=== PATIENT | female | born 1970 | race Caucasian/White ===

== ENCOUNTER → 2016-05-20 | Outpatient (CLI) | payer OTHER | LOC: BHSO 09:02 | DX: F41.1 Generalized anxiety disorder (principal) ==

== ENCOUNTER → 2016-10-20 | Outpatient (CLI) | payer OTHER | LOC: MC.RAD 07:20 | DX: Z12.31 Encounter for screening mammogram for malignant neoplasm of breast (principal) ==

== ENCOUNTER → 2016-10-31 | Outpatient (CLI) | payer OTHER | LOC: BHSO 09:20 | DX: F33.1 Major depressive disorder, recurrent, moderate (principal) ==

== ENCOUNTER → 2017-04-30 | Outpatient (CLI) | payer OTHER | LOC: BHSO 10:00 | DX: F41.1 Generalized anxiety disorder (principal) | CPT/HCPCS: G0463 ==

== ENCOUNTER 2017-09-18 06:02 | Day surgery (SDC) | payer BC ==
[~2017-09-18] VITALS: Ht 162.6 cm; Wt 169.0 kg
[2017-09-18] MEDS ORDERED: PROZAC 10MG10 MG PO (06:26)
[2017-09-18] MEDS ORDERED: LAMICTAL150 MG PO ×2 (06:26→06:27)
[2017-09-18] MEDS ORDERED: RHINOCORT0.032 MG/1 NS (06:26)
[2017-09-18] MEDS ORDERED: TOPAMAX 100MG100 M1 PO (06:27)
[2017-09-18] MEDS ORDERED: ALLEGRA 180MG180 MG PO (06:27)
[2017-09-18] MEDS ORDERED: NORETHINDRONE/E1 KIT PO (06:27)
[2017-09-18 06:28] VITALS: BP 108/73; PULSE 71; TEMP 97.7
[2017-09-18 07:30] VITALS: BP 100/73; PULSE 66; TEMP 97
[2017-09-18 07:45] VITALS: BP 112/74; PULSE 63
[2017-09-18 08:00] VITALS: BP 118/75; PULSE 79
== END 2017-09-18 08:19 | disposition home or self-care (01) ==
LOC: SDCO 06:02
DX: Z12.11 Encounter for screening for malignant neoplasm of colon (principal); J45.909 Unspecified asthma, uncomplicated; G43.909 Migraine, unspecified, not intractable, without status migrainosus; F32.9 Major depressive disorder, single episode, unspecified; F41.9 Anxiety disorder, unspecified; Z88.1 Allergy status to other antibiotic agents; Z88.2 Allergy status to sulfonamides; Z80.0 Family history of malignant neoplasm of digestive organs
CPT/HCPCS: OP; J2704; J7120

== ENCOUNTER → 2017-11-09 | Outpatient (CLI) | payer BC ==
[~2017-11-09] MED LIST: ALLEGRA 180MG180 MG PO; LAMICTAL150 MG PO; NORETHINDRONE/E1 KIT PO; PROZAC 10MG10 MG PO; RHINOCORT0.032 MG/1 NS; TOPAMAX 100MG100 M1 PO
== END ==
LOC: MC.RAD 06:58
DX: Z12.31 Encounter for screening mammogram for malignant neoplasm of breast (principal)

== ENCOUNTER 2017-12-14 13:16 | Outpatient (RCR) | payer BC | END 2018-03-14 | disposition home or self-care (01) | LOC: MKS.ESL.PT | DX: M65.831 Other synovitis and tenosynovitis, right forearm (principal) ==

== ENCOUNTER 2018-08-28 20:04 | Inpatient (IN) | payer BC ==
[~2018-08-28] VITALS: Ht 162.6 cm; Wt 89.9 kg
[2018-08-28 20:44] LABS: BASO % 0.3 % (0.0-2.0); EOS # 0.1 (0.0-0.7); EOS % 0.9 % (0-4.0); GRAN # 6.4 (1.4-6.5); GRAN % 60.7 % (42.2-75.2); HEMOGLOBIN 13.4 g/dl (12.5-16.0); LYMPH # 3.2 (1.2-3.4); LYMPH % 30.4 % (20.0-51.0); MEAN CELL VOLUME 90 fl (80.0-100.0); MEAN CORPUSCULAR HEMOGLOBIN 30 pg (27.0-31.0); MEAN CORPUSCULAR HGB CONC 34 g/dl (33.0-37.0); MEAN PLATELET VOLUME 9.5 fl (7.4-10.4); MONO # 0.8 (0.1-0.6); MONO % 7.2 % (1.7-9.3); PLATELET COUNT 369 K/mm3 (130-400); RED BLOOD COUNT 4.43 M/mm3 (4.10-5.30); REDCELL DISTRIBUTION WIDTH-CV 13.1 % (11.5-14.5)
[2018-08-28] MEDS ORDERED: FLONASE SENSIM9.9 ML NS (20:47)
[2018-08-28] MEDS ORDERED: BIRTH CONTROL (20:48)
[2018-08-28 20:50] LABS: ALBUMIN 3.8 gm/dL (3.5-5.0); BILIRUBIN,TOTAL 0.2 mg/dL (0.0-1.0); C-REACTIVE PROTEIN 2.1 mg/dL (0.0-0.9); CALCIUM 9.1 mg/dL (8.4-10.2); CREATININE, serum 1.04 (0.52-1.25); POTASSIUM 3.8 mmol/L (3.4-5.0)
[2018-08-28] MEDS ORDERED: DECADRON0.5 MG (20:50)
[2018-08-28] MEDS ORDERED: AIMOVIG AU70 MG/1 M1 SQ (20:51)
[2018-08-28 21:49] LABS: COLLECTION METHOD CLEAN CATCH
[2018-08-28 21:56] LABS: MUCOUS Present /lpf; PH 5 (5-8); URINE APPEARANCE Hazy; URINE BACTERIA None Seen /hpf; URINE BILIRUBIN Negative (NEGATIVE); URINE BLOOD 1+ (NEGATIVE); URINE COLOR Yellow; URINE GLUCOSE Negative (NEGATIVE); URINE KETONE Negative (NEGATIVE); URINE LEUKOCYTE ESTERASE Negative (NEGATIVE); URINE NITRATE Negative (NEGATIVE); URINE PROTEIN(semi-quant) 1+ (NEGATIVE); URINE UROBILINOGEN Negative (NEGATIVE)
[2018-08-28 23:55] VITALS: BP 104/54; PULSE 99; TEMP 97.5
[2018-08-29] MEDS ORDERED: ESTARYLLA 35 MC1 TAB PO (01:28)
--- NOTE | 2018-08-29 02:01 | NUR ---
PT ARRIVED FROM ED VIA GURNEY WITH BY SIDE. PT SLEEPY BUT ABLE TO ANSWER QUESTIONS. PT HAS HEADACHE LOCATED ON FOREHEAD RATED A 3/10, THAT IS INTERMITTEN AND ACHING. PT HAS NO NEEDS AT THIS TIME, CALL LIGHT WITHIN REACH. PT WAS NOT SURE ON A COUPLE OF MEDICATIONS THAT SHE TAKES AND WILL HAVE HER BRING IN THE BOTTLES IN THE MORNING.
[2018-08-29 03:52] VITALS: BP 121/73; PULSE 78; TEMP 97.5
--- NOTE | 2018-08-29 04:47 | NUR ---
PT ADVISES THAT SHE IS VERY SLEEPY. PT HAD 1 EPISODE OF VOMITING. GAVE ZOFRAN FOR NAUSEA. PT FEELING BETTER, TRYING TO SLEEP NOW. PT HAS HEADACHE RATED AT 4/10 THAT IS ACHING, BUT DECLINES ANY PAIN MEDICATION FOR HEADACHE AT THIS TIME. PT'S AT BEDSIDE, CALL LIGHT WITHIN REACH, AND BED ALARM ON.
[2018-08-29 06:49] LABS: HEMATOCRIT 37.8 % (37.0-47.0); HEMOGLOBIN 12.8 g/dl (12.5-16.0); MEAN CELL VOLUME 89 fl (80.0-100.0); MEAN CORPUSCULAR HEMOGLOBIN 30 pg (27.0-31.0); MEAN CORPUSCULAR HGB CONC 34 g/dl (33.0-37.0); MEAN PLATELET VOLUME 9.8 fl (7.4-10.4); PLATELET COUNT 311 K/mm3 (130-400); RED BLOOD COUNT 4.23 M/mm3 (4.10-5.30); REDCELL DISTRIBUTION WIDTH-CV 13.2 % (11.5-14.5)
[2018-08-29 06:57] LABS: CALCIUM 8.4 mg/dL (8.4-10.2); CREATININE, serum 0.73 (0.52-1.25); POTASSIUM 4.3 mmol/L (3.4-5.0)
--- NOTE | 2018-08-29 07:00 | NUR ---
Received report, patient is observed to be laying on left side with eyes closed. is at bedside. Call light is within reach.
--- NOTE | 2018-08-29 07:28 | NUR ---
DR. PATE NOTIFIED OF CONSULT.
[2018-08-29 08:07] VITALS: BP 115/66; PULSE 81; TEMP 98.2
[2018-08-29 08:37] LABS: BAND 7 % (0-10); LYMPHOCYTE 9 % (20.0-51.0); NEUTROPHILS 82 % (42.0-75.2); PLATELET ESTIMATE NORMAL (NORMAL)
[2018-08-29 11:20] VITALS: BP 126/81; PULSE 74; TEMP 98.3
--- NOTE | 2018-08-29 12:58 | NUR ---
Patient lives at home with her (Tristian) in [place], [place] and plans to return home upon discharge. 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 Patient has no durable medical equipment usage, her primary care physician is Dr. Beata Michael, her pharmacy is [facility], and she does not have advance directives for healthcare completed at this time. No further needs and family welfare social work professor will follow as needed.
[2018-08-29 15:57] VITALS: BP 111/66; PULSE 79; TEMP 97.6
--- NOTE | 2018-08-29 18:56 | NUR ---
Patient is resting in bed with head elevated. Has had some tyson crackers and sprite without nausea and vomiting. Facial expression looks more relaxed. remains at bedside. States pain has improved. Personal items and call light is within reach.
[2018-08-29 18:58] VITALS: BP 107/62; PULSE 71; TEMP 97.4
--- NOTE | 2018-08-29 20:00 | NUR ---
PT IN BED WITH LIGHTS OFF AND RESTING IN BED WITH HOB ELEVATED TO 45 DEGREE ANGLE. AT BEDSIDE. PT DENIES PAIN OR DISCOMFORT. PT HAS QUESTIONS ABOUT WHY SHE IS NOT GETTING ALL HER NIGHT MEDS LIKE SHE DID AT HOME, ADVISED WILL PASS IT ON TO DAYSHIFT NURSE AND CHECK THE CHARTS. PT HAS NO NEEDS AT THIS TIME, CALL LIGHT WITHIN REACH.
[2018-08-29 23:03] LABS: TRICYCLIC ANTIDEPRESS URINE NEGATIVE
[2018-08-30] VITALS (8 sets, daily range): BP systolic 101–152; BP diastolic 60–96; PULSE 66–110; TEMP 97.3–98.6
--- NOTE | 2018-08-30 02:48 | NUR ---
UNEVENTFUL NIGHT SO FAR. PT RESTING/SLEEPING WITH NO S/S OF PAIN OR DISCOMFORT NOTED. AT BED SIDE AND CALL LIGHT WITHIN REACH.
--- NOTE | 2018-08-30 06:05 | NUR ---
PT REFUSED TORADOL BECAUSE SHE FEELS THAT IT GIVES HER A HEADACHE AND WANTED TO TRY NOT TAKING IT. PT SLEEPING/RESTING AT THIS TIME, NO S/S OF PAIN OR DISCOMFORT NOTED, CALL LIGHT IN REACH AND AT BEDSIDE.
[2018-08-30 06:59] LABS: BASO % 0.2 % (0.0-2.0); EOS # 0.1 (0.0-0.7); EOS % 1.1 % (0-4.0); GRAN # 5.2 (1.4-6.5); GRAN % 61.6 % (42.2-75.2); LYMPH # 2.5 (1.2-3.4); LYMPH % 29.3 % (20.0-51.0); MEAN CELL VOLUME 92 fl (80.0-100.0); MEAN CORPUSCULAR HGB CONC 33 g/dl (33.0-37.0); MEAN PLATELET VOLUME 9.6 fl (7.4-10.4); MONO # 0.6 (0.1-0.6); MONO % 7.4 % (1.7-9.3); PLATELET COUNT 240 K/mm3 (130-400); RED BLOOD COUNT 3.55 M/mm3 (4.10-5.30); REDCELL DISTRIBUTION WIDTH-CV 13.3 % (11.5-14.5)
[2018-08-30 07:02] LABS: HEMATOCRIT 32.5 % (37.0-47.0); HEMOGLOBIN 10.8 g/dl (12.5-16.0); MEAN CORPUSCULAR HEMOGLOBIN 30 pg (27.0-31.0)
--- NOTE | 2018-08-30 07:08 | NUR ---
Patient is awake and alert, has desire to try to eat breakfast. Was instructed on how to order food. Call light and personal items are within reach. is at bedside.
[2018-08-30 07:10] LABS: CALCIUM 7.9 mg/dL (8.4-10.2); CREATININE, serum 0.96 (0.52-1.25)
--- NOTE | 2018-08-30 18:50 | NUR ---
Patient has been more alert today, trying solid foods and eating successfully. Requesting to shower, has even walked back and forth to the restroom. Stated having little pain. remains at bedside. Call light and personal itmes are within reach.
--- NOTE | 2018-08-31 03:10 | NUR ---
PATIENT REQUESTED TYLENOL FOR C/O HEADACHE AT 0100. 650MG PO GIVEN AT 0112. CONTINUED TO C/O OF HEADACHE AT 0200. ICE PACK REQUESTED AND PROVIDED. REPORTS SOME RELIEF AT 0310 BUT STILL REPORTING HEADACHE. CALL TO RON ORTEGA ORDER RECEIVED FOR TORADOL 30MG IVP NOW TIMES 1 DOSE. SEE NEURO ASSESSMENTS COMPLETED WNL.
[2018-08-31 03:11] VITALS: BP 133/81; PULSE 85; TEMP 97.6
[2018-08-31 06:20] LABS: BASO % 0.2 % (0.0-2.0); EOS % 0.4 % (0-4.0); GRAN # 7.8 (1.4-6.5); GRAN % 77.2 % (42.2-75.2); HEMOGLOBIN 11.4 g/dl (12.5-16.0); LYMPH # 1.6 (1.2-3.4); LYMPH % 15.8 % (20.0-51.0); MEAN CELL VOLUME 92 fl (80.0-100.0); MEAN CORPUSCULAR HEMOGLOBIN 30 pg (27.0-31.0); MEAN CORPUSCULAR HGB CONC 33 g/dl (33.0-37.0); MEAN PLATELET VOLUME 9.1 fl (7.4-10.4); MONO # 0.6 (0.1-0.6); PLATELET COUNT 229 K/mm3 (130-400); RED BLOOD COUNT 3.79 M/mm3 (4.10-5.30); REDCELL DISTRIBUTION WIDTH-CV 13.5 % (11.5-14.5)
[2018-08-31 06:22] LABS: HEMATOCRIT 34.8 % (37.0-47.0)
[2018-08-31 06:29] LABS: CALCIUM 8.4 mg/dL (8.4-10.2); CHOLESTEROL RISK RATIO 2.7; CREATININE, serum 0.91 (0.52-1.25); POTASSIUM 4.3 mmol/L (3.4-5.0)
[2018-08-31 08:24] VITALS: BP 121/81; PULSE 72; TEMP 97.4
--- NOTE | 2018-08-31 08:34 | NUR ---
Assessment complete.patient awake,a/ox3.breathing even and unlabored.LSCTA.institutional aide equals.neuros WNLs.denies any seizures.continues on IV keppra.IVF infusing.all meds given.c/o of headache and rates pain at 3/10.states pain or tolerable at this time.will let nurse know if she needs anything for pain.will continue to monitor.call light in reach.
[2018-08-31 12:07] VITALS: BP 126/74; PULSE 72; TEMP 98.4
--- NOTE | 2018-08-31 14:54 | NUR ---
patient resting in bed at this time,MRI completed.patient denies any needs at this time.call light in reach
[2018-08-31 16:13] VITALS: BP 123/79; PULSE 95; TEMP 98.3
--- NOTE | 2018-08-31 17:30 | NUR ---
MRI SHOWED THROMBUS.STAT HEPARIN DRIP STARTED.PATIENT AND FAMILY NOTIFIED BY DOCTOR MIGUEL ANGEL.PATIENT IS PENDING TRANSFER TO [facility].HEP XA DRAWN AND PENDING.HEPARIN DRIP INFUSING AT 16ML/HR AFTER BOLUS GIVEN.WILL CONTINUE TO MONITOR.CALL LIGHT IN REACH
--- NOTE | 2018-08-31 18:21 | NUR ---
UPDATED ON PATIENT'S CONDITION VIA PHONE.
[2018-08-31 18:31] LABS: PARTIAL THROMBOPLASTIN TIME 28.5 SECONDS (26.0-37.0)
--- NOTE | 2018-08-31 18:44 | NUR ---
REPORT GIVEN TO KIANNA VELAZQUEZ.
[2018-08-31 19:30] VITALS: BP 126/62; PULSE 85; TEMP 98.1
--- NOTE | 2018-08-31 20:40 | NUR ---
PATIENT BEING TRANSFERRED TO [facility] TO BE TRANSFERRED BY [facility]. CURRENTLY WAITING FOR EMS. TELEPHONE REPORT GIVEN TO SOUMYA HUTCHISON AT [facility]. ENCOURAGED TO CALL WITH ANY QUESTIONS OR CONCERNS. PATIENT AND AGREE TO TRANSFER AND TRANSFER FORM OBTAINED. PATIENT DENIES COMPLAINTS OR CONCERNS AT THIS TIME. NEURO CHECKS WNL. NO HEADACHE, NAUSEA, VOMITING, OR VISUAL CHANGES. SPEECH WNL FOR PATIENT WITH NO SLURRING.
--- NOTE | 2018-08-31 21:19 | NUR ---
PATIENT TRANSFERRED OFF FLOOR BY [facility] FOR TRANSFERRED TO [facility] @ 7634. A/O X 4. NEURO CHECKS WNL. NO C/O PAIN OR DISCOMFORT. VERBAL REPORT GIVEN TO [facility]URGL[facility] ALARM INSTALLER. TANSFERRED PACKET PROVIDED.
[2018-08-31 22:57] LABS: HOMOCYSTEINE 6.7 umol/L (4.0-14.0)
[2018-09-02 12:57] LABS: LUPUS ANTICOAGULANT PT 11.3 sec (())
[2018-09-02 14:22] LABS: APCRV RATIO 2.8 (>or=2.3)
[2018-09-03 09:54] LABS: PROTEIN C ACTIVITY 131 % (70-150)
== END 2018-08-31 21:20 | disposition short-term general hospital (02) | DRG 65 ==
LOC: COL.ER 20:04 → MEDICAL 23:19
PROVIDERS: Family Medicine; Nurse Practitioner; Nurse Practitioner Family; Psychiatry & Neurology Neurology; ADMIT Hospitalist
DX: I63.39 Cerebral infarction due to thrombosis of other cerebral artery (principal); F33.40 Major depressive disorder, recurrent, in remission, unspecified; R56.9 Unspecified convulsions; G43.909 Migraine, unspecified, not intractable, without status migrainosus; G44.89 Other headache syndrome; R47.01 Aphasia
CPT/HCPCS: 99222-AI; 99233-AI; 99239; A9585; J1100; J1200; J1630; J1644; J1885; J1953; J2060; J2405; J7030; J7120

== ENCOUNTER → 2018-11-11 | Outpatient (CLI) | payer BC ==
[~2018-11-11] MED LIST changes: +AIMOVIG AU70 MG/1 M1 SQ; +BIRTH CONTROL; +DECADRON0.5 MG; +ESTARYLLA 35 MC1 TAB PO; +FLONASE SENSIM9.9 ML NS
== END ==
LOC: MC.RAD 15:00
DX: Z12.31 Encounter for screening mammogram for malignant neoplasm of breast (principal)

== ENCOUNTER → 2019-12-13 | Outpatient (CLI) | payer BC | LOC: MC.RAD 13:42 | DX: Z12.31 Encounter for screening mammogram for malignant neoplasm of breast (principal) ==

== ENCOUNTER 2020-12-28 08:30 | Outpatient (RCR) | payer BC | END 2021-01-06 | disposition home or self-care (01) | LOC: MKS.ESL.PT | DX: M16.11 Unilateral primary osteoarthritis, right hip (principal) ==

== ENCOUNTER 2021-01-25 08:00 | Outpatient (RCR) | payer BC | END 2021-01-25 16:00 | disposition home or self-care (01) | LOC: MKS.ESL.PT 08:00 | DX: M16.11 Unilateral primary osteoarthritis, right hip (principal); M54.50 Low back pain, unspecified ==

== ENCOUNTER 2021-10-19 09:32 | Emergency (ER) | payer BC ==
[~2021-10-19] VITALS: Ht 162.6 cm; Wt 89.1 kg
[2021-10-19 09:41] VITALS: PULSE 87; TEMP 98
[2021-10-19] MEDS ORDERED: NORCO 325 MG-51 TAB PO (09:55)
[2021-10-19] MEDS ORDERED: CRUTCHES MC (10:01)
[2021-10-19 10:18] VITALS: BP 130/96
== END 2021-10-19 10:20 | disposition home or self-care (01) ==
LOC: COL.ER 09:32
DX: S82.831A Other fracture of upper and lower end of right fibula, initial encounter for closed fracture (principal); W01.0XXA Fall on same level from slipping, tripping and stumbling without subsequent striking against object, initial encounter; Y93.01 Activity, walking, marching and hiking